=== PATIENT | female | born 1975 | race American Indian/Alaskan Native ===

== ENCOUNTER 2022-03-08 23:45 | Emergency (ER) | payer BC ==
[2022-03-08 23:51] VITALS: BP 136/87
[2022-03-08] MEDS ORDERED: ASPIRIN 325 MG TAB PO ONE (23:52)
[2022-03-09 00:21] LABS: Hematocrit 29.6 % (30.3-42.9); Hemoglobin 9.2 gm/dl (10.1-14.3); Mean Corpuscular HGB Conc 31 % (30-34); Mean Corpuscular Volume 77 fl (79-97); Platelet Count 590 K/mm3 (140-440); Red Blood Count 3.84 M/mm3 (3.65-5.03)
[2022-03-09 00:30] LABS: Red Cell Distribution Width 21.8 % (13.2-15.2)
--- NOTE | 2022-03-09 00:32 | XRay Report ---
CHEST 2 VIEWS INDICATION / CLINICAL INFORMATION: CHEST PAIN. COMPARISON: None available. FINDINGS: SUPPORT DEVICES: None. HEART / MEDIASTINUM: No significant abnormality. LUNGS / PLEURA: No significant pulmonary abnormality. No significant pleural effusion. No pneumothora x. ADDITIONAL FINDINGS: No significant additional findings. IMPRESSION: 1. No acute abnormality of the chest. Signer Name: Ayush Watkins MD Signed: 03/09/2022 12:27 AM Workstation Name: [id number]
[2022-03-09 00:45] LABS: Alanine Aminotransferase 19 units/L (7-56); Albumin 4.4 g/dL (3.9-5); Blood Urea Nitrogen 5 mg/dL (7-17); Calcium 9.5 mg/dL (8.4-10.2); Hemolysis Index 0
[2022-03-09 00:47] LABS: BUN/Creatinine Ratio 7
[2022-03-09 02:22] LABS: Anisocytosis 1+; Basophils % (Manual) 0 % (0.0-1.8); Platelet Estimate Consistent w Auto; Total Cells Counted 100
--- NOTE | 2022-03-09 18:18 | Electrocardiograph Report ---
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
== END 2022-03-09 13:00 | disposition left against medical advice (07) ==
LOC: ED 23:45
DX: R07.9 Chest pain, unspecified (principal); Z53.21 Procedure and treatment not carried out due to patient leaving prior to being seen by health care provider
CPT/HCPCS: 36415; 71046; 80053; 84484; 85007; 85025; 93005